=== PATIENT | female | born 1965 | race Caucasian/White ===

== ENCOUNTER 2017-12-31 06:47 | Day surgery (SDC) | payer BC ==
[~2017-12-31 06:47] MED LIST: Lactated Ringers 1,000 ML IV SCH; Sodium Chloride 0.9% 10 ML Syringe FLUSH PRN
[2017-12-31] MEDS ORDERED: Propofol 200 MG/20 ML SDV IV ONE (07:45)
[2017-12-31] MEDS ORDERED: Midazolam 1 MG/ML 2 ML SDV IV ONE (07:45)
--- NOTE | 2017-12-31 08:21 | PCM.SN ---
- Free Text/Narrative Note: Pt examined and chart reviewed. There are no changes to the H+P
--- NOTE | 2017-12-31 08:23 | PCM.OPNOTE ---
- General Post-Op/Procedure Note Date of Surgery/Procedure: 12/31/17 Operative Procedure(s): C scope with bx Findings: ascending colon polyp sessile Pre Op Diagnosis: colon cancer screening Post-Op Diagnosis: ascending colon polyp. sessile Anesthesia Technique: MAC Primary Surgeon: Elias Gilbert Anesthesia Provider: Jael Alfred Pathology: ascending colon polyp sessile Complications: None Condition: Good Free Text/Narrative:: see dictation
--- NOTE | 2017-12-31 09:28 | OR ---
DATE OF OPERATION: 12/31/2017 SURGEON: Elias Gilbert MD PROCEDURE PERFORMED: Colonoscopy with hot loop and cold forceps biopsy. PREOPERATIVE DIAGNOSIS: Colon cancer screening. POSTOPERATIVE DIAGNOSIS: Ascending colon polyp. INDICATIONS FOR PROCEDURE: This is a 52-year-old white female who presents for her initial screening colonoscopy. She was offered and accepted same. DESCRIPTION OF OPERATION: After an excellent IV sedation was administered, digital rectal exam was performed. No marked abnormality was noted. The flexible colonoscope was inserted and advanced to the cecum without difficulty. The prep was excellent. The following findings were noted. Ascending colon; at the distal ascending colon, along the line of a fold, there was a 1.5 cm polyp, which was biopsied with hot loop snare and cold forceps biopsy. The area was also tattooed given the sessile nature of the lesion. The transverse colon was unremarkable. Descending colon was unremarkable. Sigmoid and rectum were unremarkable. Colon was deflated. The scope was removed. She tolerated the procedure well and was taken to Recovery in a good condition. Results, by letter. /[id number] /MODL
== END 2017-12-31 09:20 | disposition home or self-care (01) ==
LOC: FB.SDS 06:47
PROVIDERS: ATTEND Surgery
DX: Z12.11 Encounter for screening for malignant neoplasm of colon (principal); D12.2 Benign neoplasm of ascending colon; Z79.899 Other long term (current) drug therapy
CPT/HCPCS: 45385; 88305; J2250; J2704; J7120